=== PATIENT | female | born 2005 | race Caucasian/White ===

== ENCOUNTER 2025-04-11 07:58 | Inpatient (IN) | payer BC, MEDICAID ==
[2025-04-11] VITALS (7 sets, daily range): BP systolic 125; BP diastolic 76; PULSE 0–90; RESP 15–19; TEMP 98.5; O2SAT 95–98
[~2025-04-11] VITALS: Ht 160 cm; Wt 71.0 kg
--- NOTE | 2025-04-11 08:09 | ED.PDOC ---
General HPI Comments 20 y/o F, with PMHx of kidney stones presents to the ED for CC of flank pain. Patient states, she has been experiencing left-sided flank pain sudden onset, 0500 this morning (04/11/25). Patient reports, having been seen at Urgent Care yesterday (04/10/25) for SS and being prescribed Abx for a UTI. Patient further relays, to have associated symptoms of nausea; denies vomiting at this time. Patient denies fever, chills, frequency, or hematuria. No other symptoms or modifying factors are present at this time. Chief Complaint: Flank Pain Time Seen by MD: 08:30 Primary Care Provider: STAN Swann notes: Nurses Notes, Medications, Allergies Allergies: Coded Allergies: Penicillins (Verified Allergy, Unknown, 04/11/25) Information Source: Patient Mode of Arrival: Wheelchair Severity: Moderate Timing: Hours Duration: Since onset Prehospital treatment: None Onset: Spontaneous Symptoms: Dysuria History of: None Location: (L)Flank Modifying factors: None associated signs and symptoms: Nausea, Flank Pain, Dysuria Past Medical History PAST MEDICAL HISTORY: Anxiety, Depression Surgical History: Denies all surgeries [employer]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 Family History Family History: Reviewed,noncontributory to illness, Family hx of Cancer Family History (Other): Ovarian cysts, posterior orthostatic tachycardia syndrome Social History Smoker: Non-Smoker Alcohol: Denies ETOH Use Drugs: Denies Drug Use Lives In: Home Constitutional: denies: chills, diaphoresis, fatigue, fever, malaise, sweats, w eakness, others EENTM: denies: blurred vision, double vision, ear bleeding, ear discharge, ear drainage, ear pain, ear ringing, eye pain, eye redness, hearing loss, mouth pain, mouth swelling, nasal discharge, nose bleeding, nose congestion, nose pain, photophobia, tearing, throat pain, throat swelling, voice changes, others Respiratory: denies: cough, hemoptysis, orthopnea, SOB at rest, shortness of breath, SOB with excertion, stridor, wheezing, others Cardiovascular: denies: chest pain, dizzy spells, diaphoresis, Dyspnea on exertion, edema, irregular heart beat, left arm pain, lightheadedness, palpitations, PND, syncope, others Gastrointestinal: denies: abdomen distended, abdominal pain, blood streaked bowels, constipated, diarrhea, dysphagia, difficulty swallowing, hematemesis, melena, nausea, poor appetite, poor fluid intake, rectal bleeding, rectal pain, vomiting, others Genitourinary: reports: flank pain; denies: abnormal vagina bleeding, burning, dyspareunia, dysuria, frequency, hematuria, incontinence, pain, , vagina discharge, urgency, others Neurological: denies: dizziness, fainting, headache, left sided numbness, left sided weakness, numbness, paresthesia, pre-existing deficit, right sided numbness, right sided weakness, seizure, speech problems, tingling, tremors, weakness, others Musculoskeletal: denies: back pain, gout, joint pain, joint swelling, muscle pain, muscle stiffness, neck pain, others Integumetry: denies: bruises, change in color, change in hair/nails, dryness, laceration, lesions, lumps, rash, wounds, others Allergic/Immunocompromised: denies: Difficulty Healing, Frequent Infections, Hives, Itching, others Hematologic/Lymphatic: denies: anemia, blood clots, easy bleeding, easy bruising, swollen glands, others Endocrine: denies: excessive hunger, excessive sweating, excessive thirst, excessive urination, flushing, intolerance to cold, intolerance to heat, unexplained weight gain, unexplained weight loss, others Psychiatric: denies: anxiety, bipolar disorder, depression, hopeless, panic disorder, schizophrenia, sleepless, suicidal, others All Other Systems: Reviewed and Negative Physical Exam General Appearance: Moderate Distress HEENT: Normal ENT Inspection, Pharynx Normal, TMs Normal Neck: Full Range of Motion, Non-Tender, Normal, Normal Inspection Respiratory: Chest Non-Tender, Lungs Clear, No Accessory Muscle Use, No Respiratory Distress, Normal Breath Sounds Cardiovascular: No Edema, No JVD, No Murmur, No Gallop, Normal Peripheral Pul ses, Regular Rate/Rhythm Breast Exam: Deferred Gastrointestinal: Diffuse Genitalia: Deferred Pelvic: Deferred Rectal: Deferred Extremities: No calf tenderness, Normal capillary refill, Normal inspection, Normal range of motion, Non-tender, No pedal edema Musculoskeletal : Apperance: Normal Neurologic: Alert, mind reader II-XII nml as Tested, No Motor Deficits, Normal Affect, Normal Mood, No Sensory Deficits Cerebellar Function: NOT DONE Reflexes: NOT DONE Skin: Dry, Normal Color, Warm Peripheral Pulses: 3+ Radial (R), 3+ Radial (L) Lymphatic: No Adenopathy Was a procedure done? Was a procedure done?: No Differential Diagnosis Kidney stone (Female): Pyelonephritis, Urinary obstruction, Urolithiasis Kidney stone (Male): N/A Penile/Scrotal: N/A Urinary Problem (Male): N/A Urinary Problem (Female): UTI, Vaginitis X-Ray, Labs, Meds, VS Vital Signs Date Time Temp Pulse Resp B/P (MAP) Pulse Ox O2 Delivery O2 Flow Rate FiO2 04/11/25 08:00 99.1 96 18 124/82 97 99.1 Lab Test 04/11/25 08:22 Range/Units White Blood Count 9.0 4.4-10.8 10^3/uL Red Blood Count 4.97 4.0-5.20 10^6/uL Hemoglobin 14.3 12.2-16.2 g/dL Hematocrit 42.3 36.0-46.0 % Mean Corpuscular Volume 85.1 80.0-100.0 fL Mean Corpuscular Hemoglobin 28.8 28.0-32.0 pg Mean Corpuscular Hemoglobin Concent 33.8 32.0-36.0 g/dL Red Cell Distribution Width 13.2 11.8-14.3 % Platelet Count 314 140-450 10^3/uL Mean Platelet Volume 8.8 6.9-10.8 fL Neutrophils (%) (Auto) 83.7 H 37.0-80.0 % Lymphocytes (%) (Auto) 9.0 L 10.0-50.0 % Monocytes (%) (Auto) 6.1 0.0-12.0 % Eosinophils (%) (Auto) 1.0 0.0-7.0 % Basophils (%) (Auto) 0.2 0.0-2.0 % Neutrophils # (Auto) 7.5 1.6-8.6 10 ^3/uL Lymphocytes # (Auto) 0.8 0.4-5.4 10 ^3/uL Monocytes # (Auto) 0.5 0-1.3 10 ^3/uL Eosinophils # (Auto) 0.1 0-0.8 10 ^3/uL Basophils # (Auto) 0 0-0.2 10 ^3/uL Nucleated Red Blood Cells 0.0 % Sodium Level 142 136-145 mmol/L Potassium Level 4.1 3.5-5.1 mmol/L Chloride Level 109 H 98-107 mmol/L Carbon Dioxide Level 22 20-31 mmol/L Anion Gap 11 5-15 Blood Urea Nitrogen 9 9-23 mg/dL Creatinine 0.77 0.550-1.02 mg/dL Glomerular Filtration Rate Calc 113 >90 mL/min BUN/Creatinine Ratio 11.7 10.0-20.0 Serum Glucose 85 74-106 mg/dL Calcium Level 9.4 8.7-10.4 mg/dL Current Medications Medications (Trade) Dose Ordered Sig/Kristine Route Start Time Stop Time Status Last Admin Ondansetron HCl (Zofran) 4 mg ONCE ONCE IV 04/11/25 08:15 04/11/25 08:16 DC 04/11/25 08:54 Sodium Chloride 1,000 ml @ 1,000 mls/hr Q1H ONCE IVB 04/11/25 08:15 04/11/25 09:14 04/11/25 08:54 Ketorolac Tromethamine (Toradol Injection) 30 mg ONCE ONCE IV 04/11/25 08:15 04/11/25 08:16 DC 04/11/25 08:54 Patient alert. Complaining of flank pain. Vitals stable. Answering questions. Establish intravenous access. Was given fluids. Was given Toradol. Was given Zofran. CT scan of the abdomen reviewed shows appendicitis. Was given Levaquin. Was given Flagyl. Explained to the patient. Continue monitoring. [place] [id number] Ph: [phone] DIAGNOSTIC IMAGING Diagnostic Imaging Report : [id number] Signed PATIENT: NERIS LOUIS MACCT: [id number] UNIT: [id number] : 2005 LOC: ER ROOM / BED: / AGE / SEX: 20 / F ADM STATUS: REG ER SERVICE 4 ORDERING PHYSICIAN: JEREMIAS PINEDA MD PROCEDURE(s): ABPL - CT AB PEL WO CON-NO ORAL OR IV REASON: stone ORDER NUMBER(s): [id number], ACCESSION NUMBER(s): [id number] CLINICAL INFORMATION: Renal stone. TECHNIQUE: Axial CT images of the abdomen and pelvis were obtained without IV contrast. Coronal and sagittal reformatted images were obtained, reviewed, and stored. Evaluation of the parenchymal organs is limited without IV contrast. Evaluation of the bowel and mesentery is limited without oral contrast. All CT scans at this medical facility are performed using dose modulation techniques as appropriate to a performed exam including the following: Automated exposure control was utilized; adjustment of the MA and/or KV according to patient size; and use of iterative reconstruction technique. CTDIvol = 6.74 mGy DLP = 345.94 mGy-cm COMPARISON: CT CT AB PEL WO CON-NO ORAL OR IV on DOS: 11/11/24, CT CT AB PEL WO CON-NO ORAL OR IV on DOS: 08/18/23, US PELVIC on DOS: 08/18/23 FINDINGS: Lung bases: Lung bases are clear. Liver: Grossly unremarkable in its noncontrast enhanced appearance. No abnormal density or focal lesion identified. Biliary: No calcified gallstones or biliary ductal dilatation. Spleen: Unremarkable. Pancreas: Grossly unremarkable in its noncontrast enhanced appearance. Adrenal glands: Unremarkable. No mass. Kidneys: No hydronephrosis. No renal or ureteral calculi. Aorta/Vascular: No aneurysm or significant calcification. Lymph nodes: No mass or lymphadenopathy. Bowel/mesentery: No small bowel obstruction. No free air or free fluid. Appendix is is mildly thickened, measuring up to 8 mm in thickness. Subtle mild inflammatory stranding adjacent to the appendix, suspicious for acute appendicitis. There is a 2 mm appendicolith within the lumen of the appendix. No evidence of perforation or abscess. Pelvic organs: Grossly unremarkable. Bladder: Unremarkable. No mass. Abdominal wall: No mass or hernia. Bones: No acute fracture or suspicious intraosseous lesion. IMPRESSION: 1. Thickened appendix with mild adjacent stranding, suspected acute appendicitis in the appropriate clinical setting. 2. No renal or ureteral calculi. Critical findings Critical Result: Findings consistent with acute appendicitis in the appropriate clinical setting. Findings discussed with Dr. Pineda, at 04/11/2025 11:01 AM CDT, and acknowledged receipt and understanding of the findings. .. ATED BY: DALE SOLANO DO DICTATED DATE/TIME: 04/11/25902 SIGNED BY: DALE SOLANO DO SIGNED DATE/TIME: 04/11/25902 CC: Time of 1ST Reevaluation: 09:00 Reevaluation 1ST: Unchanged Patient Education/Counseling: Diagnosis, Treatment Family Education/Counseling: No Family Present SEPSIS Sepsis Screen Date sepsis recognized/suspect: Apr 11, 2025 Time Sepsis recognized/suspect: 08 Recent Procedure: No On Antibiotic Therapy: Yes Respiratory Rate >20: No Heart Rate >90: Yes Temp<36 C (96.8 F) or >38.3 C: No SBP <90 or MAP <65 mmHG: No New Acute Mental Status Change: No Is the patient on CPAP, BIPAP,: No Physician Orders Urinalysis (04/11/25 08:15) Sodium Chloride 0.9% (04/11/25 08:15) Ct Ab Pel Wo Con-No Oral Or Iv (04/11/25 08:15) Levofloxacin 500mg (Levaquin 500mg/ 100m (04/11/25 09:15) Metronidazole 500mg/100ml (Flagyl 500mg/ (04/11/25 09:15) PTPTT (04/11/25 09:05) Sodium Chloride 0.9% (04/11/25 09:15) Vital Signs Date Time Temp Pulse Resp B/P (MAP) Pulse Ox O2 Delivery O2 Flow Rate FiO2 04/11/25 08:00 99.1 96 18 124/82 97 99.1 Laboratory Tests Test 04/11/25 08:22 White Blood Count 9.0 10^3/uL (4.4-10.8) Medications Medications Dose Ordered Sig/Kristine Route Start Time Stop Time Status Last Admin Dose Admin Ketorolac Tromethamine 30 mg ONCE ONCE IV 04/11/25 08:15 04/11/25 08:16 DC 04/11/25 08:54 Ondansetron HCl 4 mg ONCE ONCE IV 04/11/25 08:15 04/11/25 08:16 DC 04/11/25 08:54 Sodium Chloride 1,000 ml @ 1,000 mls/hr Q1H ONCE IVB 04/11/25 08:15 04/11/25 09:14 04/11/25 08:54 Departure 1 Departure Time of Disposition: 08:44 Impression: Primary Impression: Acute appendicitis Qualified Codes: K35.80 - Unspecified acute appendicitis Disposition: ADMITTED INPATIENT Admit to: Med Surg Condition: Guarded Critical Care Note Critical Care Time?: Yes (90 min-critical care time only) Stability Stability form required: No Heart Score Heart Score: Heart Score Response (Comments) Value History N/A 0 EKG N/A 0 Age N/A 0 Risk Factors N/A 0 Troponin N/A 0 Total 0 I personally scribed for JEREMIAS PINEDA MD ([email or web address]) on 04/11/25 at 08:09. Electronically submitted by eR Howell ([email or web address]). I personally scribed for JEREMIAS PINEDA MD ([email or web address]) on 04/11/25 at 08:19. Electronically submitted by Re Howell ([email or web address]). I personally scribed for JEREMIAS PINEDA MD ([email or web address]) on 04/11/25 at 09:12. Electronically submitted by Re Howell ([email or web address]). JEREMIAS PINEDA MD Apr 11, 2025 08:09
[2025-04-11 08:50] LABS: Hematocrit 42.3 % (36.0-46.0); Hemoglobin 14.3 g/dL (12.2-16.2); Mean Corpuscular Hemoglobin 28.8 pg (28.0-32.0); Mean Corpuscular Volume 85.1 fL (80.0-100.0); Nucleated Red Blood Cells % 0.0 %
[2025-04-11] MEDS: KETOROLAC TROMETH 30 MG/ML 1ML VIAL IV ONE (08:54)
[2025-04-11] MEDS: SODIUM CHLORIDE 0.9% 1,000 ML IVB ONE (08:54)
[2025-04-11] MEDS: ONDANSETRON HCL 4 MG/2 ML VIAL IV ONE (08:54)
[2025-04-11 08:59] LABS: Anion Gap 11 (5-15); Carbon Dioxide 22 mmol/L (20-31); Potassium 4.1 mmol/L (3.5-5.1); Sodium 142 mmol/L (136-145)
[2025-04-11 09:00] LABS: Calcium 9.4 mg/dL (8.7-10.4); Chloride 109 mmol/L (98-107)
[2025-04-11 09:05] LABS: BUN/Creatinine Ratio 11.7 (10.0-20.0); Glucose 85 mg/dL (74-106)
[2025-04-11 09:06] LABS: Blood Urea Nitrogen 9 mg/dL (9-23)
--- NOTE | 2025-04-11 09:06 | DVH ---
CLINICAL INFORMATION: Renal stone. TECHNIQUE: Axial CT images of the abdomen and pelvis were obtained without IV contrast. Coronal and s agittal reformatted images were obtained, reviewed, and stored. Evaluation of the parenchymal organs is limited without IV contrast. Evaluation of the bowel and mesentery is limited without oral contras t. All CT scans at this medical facility are performed using dose modulation techniques as appropriat e to a performed exam including the following: Automated exposure control was utilized; adjustment of the MA and/or KV according to patient size; and use of iterative reconstruction technique. CTDIvol = 6.74 mGy DLP = 345.94 mGy-cm COMPARISON: CT CT AB PEL WO CON-NO ORAL OR IV on DOS: 11/11/24, CT CT AB PEL WO CON-NO ORAL OR IV on D OS: 08/18/23, US PELVIC on DOS: 08/18/23 FINDINGS: Lung bases: Lung bases are clear. Liver: Grossly unremarkable in its noncontrast enhanced appearance. No abnormal density or focal lesi on identified. Biliary: No calcified gallstones or biliary ductal dilatation. Spleen: Unremarkable. Pancreas: Grossly unremarkable in its noncontrast enhanced appearance. Adrenal glands: Unremarkable. No mass. Kidneys: No hydronephrosis. No renal or ureteral calculi. Aorta/Vascular: No aneurysm or significant calcification. Lymph nodes: No mass or lymphadenopathy. Bowel/mesentery: No small bowel obstruction. No free air or free fluid. Appendix is is mildly thicken ed, measuring up to 8 mm in thickness. Subtle mild inflammatory stranding adjacent to the appendix, s uspicious for acute appendicitis. There is a 2 mm appendicolith within the lumen of the appendix. No evidence of perforation or abscess. Pelvic organs: Grossly unremarkable. Bladder: Unremarkable. No mass. Abdominal wall: No mass or hernia. Bones: No acute fracture or suspicious intraosseous lesion. IMPRESSION: 1. Thickened appendix with mild adjacent stranding, suspected acute appendicitis in the appropriate c linical setting. 2. No renal or ureteral calculi. Critical findings Critical Result: Findings consistent with acute appendicitis in the appropriate clinical setting. Findings discussed with Dr. Hammond, at 04/11/2025 11:01 AM CDT, and acknowledged receipt and underst anding of the findings. ..
[2025-04-11 09:40] LABS: INR 1.02 (0.9-1.15); Partial Thromboplastin Time 30.2 SEC (24.5-34.5); Prothrombin Time 10.8 sec (9.3-11.8)
[2025-04-11 12:40] LABS: Urine Protein, UAD TRACE (Negative)
[2025-04-11] MEDS ORDERED: HYDROmorphone HCL 2 MG/ML VL/or syr IV PRN ×2 (13:15→19:30)
--- NOTE | 2025-04-11 14:02 | DVH ---
CHEST RADIOGRAPH Indication: preop Technique: XY CHEST XRAY 1 VIEW Comparison: None FINDINGS: The cardiac silhouette is unremarkable. The lungs demonstrate no pulmonary airspace consolidation. Th e pulmonary vasculature is unremarkable. There is no pleural effusion. There is no pneumothorax. IMPRESSION: No pulmonary airspace consolidation.
[2025-04-11] MEDS: SODIUM CHLORIDE 0.9% 1,000 ML IV ONE (15:26)
[2025-04-11] MEDS: PANTOPRAZOLE 40 MG/10 ML VIAL INJ IV ONE (15:27)
--- NOTE | 2025-04-11 15:42 | DVHHP2 ---
History of Present Illness Reason for Visit: Abdominal pain History of Present Illness 20-year-old female presents for evaluation of abdominal pain. Patient reports a one day history of left-sided flank pain that radiates to her left lower quadrant and right lower quadrant. She reports feeling of pressure to her right lower quadrant. She associates having nausea without emesis. No fever or chills. No other acute complaints. Past Medical History Denies Past Surgical History Denies Family History Noncontributory Smoke: No ALCOHOL: none Drugs: None Lives: with Family Review of Systems Review of Systems Review of systems are currently negative otherwise addressed in HPI. Allergies: Coded Allergies: Penicillins (Verified Allergy, Unknown, 04/11/25) Medications Current Medications Medications Dose Ordered Sig/Kristine Route Start Time Stop Time Status Last Admin Dose Admin Levofloxacin/ Dextrose 100 ml @ 100 mls/hr DAILY IV 04/12/25 10:00 Metronidazole 100 ml @ 100 mls/hr Q8HR IV 04/11/25 14:00 04/11/25 15:28 100 MLS/HR Pantoprazole Sodium 40 mg DAILY IV 04/12/25 10:00 Ondansetron HCl 4 mg Q4HP PRN IV 04/11/25 13:15 Hydromorphone HCl 0.5 mg Q4HPRN PRN IV 04/11/25 13:15 Exam Vital Signs Vital Signs Date Time Temp Pulse Resp B/P (MAP) Pulse Ox O2 Delivery O2 Flow Rate FiO2 04/11/25 12:00 98.6 74 18 107/63 (78) 99 98.6 04/11/25 09:40 Room Air* 0 21 Exam Gen: 20-year-old female in mild distress. Skin: Warm, dry, normal color and texture, no rash. HEENT: Normocephalic atraumatic, mucous membranes moist and pink. Neck: Cervical and supraclavicular nodes normal without enlargement, trachea is midline, thyroid gland is normal without masses. Pulmonary: Clear to auscultation and percussion bilaterally. Cardiac: Regular rate and rhythm. No murmur Abdomen: Soft, left lower quadrant tenderness, nondistended, bowel sounds present all 4 quadrants, no guarding, no rigidity, no organomegaly. Extremities: No cyanosis, clubbing, no edema Neuro: Cranial nerves II through XII grossly intact, normal affect and speech, no focal motor deficits. Labs/Xrays ORDERING PHYSICIAN: QUINTIN DONALDSONCNLc PROCEDURE(s): CXR1 - CHEST XRAY 1 VIEW REASON: preop ORDER NUMBER(s): [id number], ACCESSION NUMBER(s): [id number] CHEST RADIOGRAPH Indication: preop Technique: XY CHEST XRAY 1 VIEW Comparison: None FINDINGS: The cardiac silhouette is unremarkable. The lungs demonstrate no pulmonary airspace consolidation. The pulmonary vasculature is unremarkable. There is no pleural effusion. There is no pneumothorax. IMPRESSION: No pulmonary airspace consolidation. RING PHYSICIAN: JEREMIAS PINEDA MD PROCEDURE(s): ABPL - CT AB PEL WO CON-NO ORAL OR IV REASON: stone ORDER NUMBER(s): [id number], ACCESSION NUMBER(s): [id number] CLINICAL INFORMATION: Renal stone. TECHNIQUE: Axial CT images of the abdomen and pelvis were obtained without IV contrast. Coronal and sagittal reformatted images were obtained, reviewed, and stored. Evaluation of the parenchymal organs is limited without IV contrast. Evaluation of the bowel and mesentery is limited without oral contrast. All CT scans at this medical facility are performed using dose modulation techniques as appropriate to a performed exam including the following: Automated exposure control was utilized; adjustment of the MA and/or KV according to patient size; and use of iterative reconstruction technique. CTDIvol = 6.74 mGy DLP = 345.94 mGy-cm COMPARISON: CT CT AB PEL WO CON-NO ORAL OR IV on DOS: 11/11/24, CT CT AB PEL WO CON-NO ORAL OR IV on DOS: 08/18/23, US PELVIC on DOS: 08/18/23 FINDINGS: Lung bases: Lung bases are clear. Liver: Grossly unremarkable in its noncontrast enhanced appearance. No abnormal density or focal lesion identified. Biliary: No calcified gallstones or biliary ductal dilatation. Spleen: Unremarkable. Pancreas: Grossly unremarkable in its noncontrast enhanced appearance. Adrenal glands: Unremarkable. No mass. Kidneys: No hydronephrosis. No renal or ureteral calculi. Aorta/Vascular: No aneurysm or significant calcification. Lymph nodes: No mass or lymphadenopathy. Bowel/mesentery: No small bowel obstruction. No free air or free fluid. Appendix is is mildly thickened, measuring up to 8 mm in thickness. Subtle mild inflammatory stranding adjacent to the appendix, suspicious for acute appendicitis. There is a 2 mm appendicolith within the lumen of the appendix. No evidence of perforation or abscess. Pelvic organs: Grossly unremarkable. Bladder: Unremarkable. No mass. Abdominal wall: No mass or hernia. Bones: No acute fracture or suspicious intraosseous lesion. IMPRESSION: 1. Thickened appendix with mild adjacent stranding, suspected acute appendicitis in the appropriate clinical setting. 2. No renal or ureteral calculi. Critical findings Critical Result: Findings consistent with acute appendicitis in the appropriate clinical setting. Findings discussed with Dr. Pineda, at 04/11/2025 11:01 AM CDT, and acknowledged receipt and understanding of the findings. .. Labs Test 04/11/25 08:40 04/11/25 08:22 Range/Units Urine Color Colorless Yellow Urine Clarity Turbid H Clear Urine pH 5.5 5.0-9.0 Urine Specific [place] 1.017 1.001-1.035 Urine Protein Trace H Negative Urine Ketones Negative Negative Urine Blood 1+ H Negative /uL Urine Nitrite 2+ H Negative Urine Bilirubin Negative Negative Urine Urobilinogen Normal Negative mg/dL Urine Leukocyte Esterase 1+ Negative /uL Urine RBC 9 0 - 4 /hpf Urine Microscopic WBC 53 H 0-5 /HPF Urine Squamous Epithelial Cells Few <5 /hpf Urine Bacteria None seen None Seen /hpf Urine Mucus Few None Seen Urine Glucose Normal Normal mg/dL White Blood Count 9.0 4.4-10.8 10^3/uL Red Blood Count 4.97 4.0-5.20 10^6/uL Hemoglobin 14.3 12.2-16.2 g/dL Hematocrit 42.3 36.0-46.0 % Mean Corpuscular Volume 85.1 80.0-100.0 fL Mean Corpuscular Hemoglobin 28.8 28.0-32.0 pg Mean Corpuscular Hemoglobin Concent 33.8 32.0-36.0 g/dL Red Cell Distribution Width 13.2 11.8-14.3 % Platelet Count 314 140-450 10^3/uL Mean Platelet Volume 8.8 6.9-10.8 fL Neutrophils (%) (Auto) 83.7 H 37.0-80.0 % Lymphocytes (%) (Auto) 9.0 L 10.0-50.0 % Monocytes (%) (Auto) 6.1 0.0-12.0 % Eosinophils (%) (Auto) 1.0 0.0-7.0 % Basophils (%) (Auto) 0.2 0.0-2.0 % Neutrophils # (Auto) 7.5 1.6-8.6 10 ^3/uL Lymphocytes # (Auto) 0.8 0.4-5.4 10 ^3/uL Monocytes # (Auto) 0.5 0-1.3 10 ^3/uL Eosinophils # (Auto) 0.1 0-0.8 10 ^3/uL Basophils # (Auto) 0 0-0.2 10 ^3/uL Nucleated Red Blood Cells 0.0 % Prothrombin Time 10.8 9.3-11.8 sec Prothrombin Time INR 1.02 0.9-1.15 Activated Partial Thromboplast Time 30.2 24.5-34.5 SEC Sodium Level 142 136-145 mmol/L Potassium Level 4.1 3.5-5.1 mmol/L Chloride Level 109 H 98-107 mmol/L Carbon Dioxide Level 22 20-31 mmol/L Anion Gap 11 5-15 Blood Urea Nitrogen 9 9-23 mg/dL Creatinine 0.77 0.550-1.02 mg/dL Glomerular Filtration Rate Calc 113 >90 mL/min BUN/Creatinine Ratio 11.7 10.0-20.0 Serum Glucose 85 74-106 mg/dL Calcium Level 9.4 8.7-10.4 mg/dL SEPSIS Sepsis Screen Date sepsis recognized/suspect: Apr 11, 2025 Time Sepsis recognized/suspect: 939 Recent Procedure: No On Antibiotic Therapy: No Respiratory Rate >20: No Heart Rate >90: No Temp<36 C (96.8 F) or >38.3 C: No SBP <90 or MAP <65 mmHG: No New Acute Mental Status Change: No Is the patient on CPAP, BIPAP,: No Physician Orders Ct Ab Pel Wo Con-No Oral Or Iv (04/11/25 08:15) * Surgical Consult (04/11/25 ) Levofloxacin 500mg (Levaquin 500mg/ 100m (04/12/25 10:00) Metronidazole 500mg/100ml (Flagyl 500mg/ (04/11/25 14:00) Sodium Chloride 0.9% (04/11/25 13:15) Pantoprazole (Protonix) (04/12/25 10:00) Chest Xray 1 View (04/11/25 13:10) Admit (04/11/25 13:10) Ondansetron Hcl (Zofran) (04/11/25 13:15) Complete Blood Count (04/12/25 04:00) Comprehensive Metabolic Panel (04/12/25 04:00) Npo (Nothing By Mouth) Diet (04/11/25 Lunch) Condition: Stable (04/11/25 13:10) Bedrest With Bathroom Privileg (04/11/25 13:10) Hydromorphone Injection (Dilaudid Inject (04/11/25 13:15) Vital Signs Date Time Temp Pulse Resp B/P (MAP) Pulse Ox O2 Delivery O2 Flow Rate FiO2 04/11/25 12:00 98.6 74 18 107/63 (78) 99 98.6 04/11/25 09:40 98.8 66 16 104/72 (83) 98 98.8 04/11/25 09:40 66 16 98 Room Air* 0 21 04/11/25 09:21 98.2 90 19 118/82 (94) 97 98.2 04/11/25 09:21 90 19 97 Room Air* 0 21 04/11/25 08:00 99.1 96 18 124/82 97 99.1 Laboratory Tests Test 04/11/25 08:22 White Blood Count 9.0 10^3/uL (4.4-10.8) Medications Medications Dose Ordered Sig/Kristine Route Start Time Stop Time Status Last Admin Dose Admin Ketorolac Tromethamine 30 mg ONCE ONCE IV 04/11/25 08:15 04/11/25 08:16 DC 04/11/25 08:54 30 MG Levofloxacin/ Dextrose 100 ml @ 100 mls/hr ONCE ONCE IV 04/11/25 09:15 04/11/25 10:14 DC 04/11/25 10:47 100 MLS/HR Metronidazole 100 ml @ 100 mls/hr ONCE ONCE IV 04/11/25 09:15 04/11/25 10:14 DC 04/11/25 12:17 100 MLS/HR Metronidazole 100 ml @ 100 mls/hr Q8HR IV 04/11/25 14:00 04/11/25 15:28 100 MLS/HR Ondansetron HCl 4 mg ONCE ONCE IV 04/11/25 08:15 04/11/25 08:16 DC 04/11/25 08:54 4 MG Pantoprazole Sodium 40 mg ONCE ONCE IV 04/11/25 13:15 04/11/25 14:16 DC 04/11/25 15:27 40 MG Sodium Chloride 1,000 ml @ 1,000 mls/hr Q1H ONCE IV 04/11/25 09:15 04/11/25 10:14 DC 04/11/25 15:26 1,000 MLS/HR Sodium Chloride 1,000 ml @ 1,000 mls/hr Q1H ONCE IVB 04/11/25 08:15 04/11/25 09:14 DC 04/11/25 08:54 1,000 MLS/HR Assessment/Plan Assessment/Plan Assessment Acute abdominal pain Acute appendicitis Urinary tract infection Plan Admit the patient to [facility] surge to the hospitalist Surgical consultation Levaquin/Flagyl Maintenance IV fluids NPO Pain management Continue treatment per orders. Plan discussed with: Patient My Orders Orders - QUINTIN DONALDSON Procedure Category Date Status Time * Surgical Consult CONS 04/11/25 Transmitted Levofloxacin 500mg PHA 04/12/25 In Process (Levaquin 500mg/ 100m 10:00 Metronidazole PHA 04/11/25 In Process 500mg/100ml (Flagyl 14:00 Sodium Chloride 0.9% PHA 04/11/25 In Process 13:15 Pantoprazole PHA 04/12/25 In Process (Protonix) 10:00 Chest Xray 1 View XY 04/11/25 Resulted 13:10 Admit ADMIT 04/11/25 Transmitted 13:10 Ondansetron Hcl PHA 04/11/25 In Process (Zofran) 13:15 Complete Blood Count LAB 04/12/25 Verified 04:00 Comprehensive LAB 04/12/25 Verified Metabolic Panel 04:00 Npo (Nothing By DIET 04/11/25 Transmitted Mouth) Diet Lunch Condition: Stable ADEN 04/11/25 In Process 13:10 Bedrest With Bathroom ADEN 04/11/25 In Process Privileg 13:10 Hydromorphone PHA 04/11/25 In Process Injection (Dilaudid 13:15 Date of Service: Apr 11, 2025 Billing Provider: QUINTIN DONALDSON Common Visit Codes: [id number] INP/OBS CARE (HIGH) QUINTIN DONALDSON Apr 11, 2025 15:42
--- NOTE | 2025-04-11 17:23 | DVHINCON2 ---
Consultation - Surgical Date Seen: Apr 11, 2025 Referring Physician Reason for Consultation Acute appendicitis History of Present Illness History of Present Illness Ms. West is a 20-year-old female who presented to the hospital due to having left-sided lower abdominal pain and some right-sided lower abdominal pressure. Pain started today around 5:00 a.m. kept progressing until she had to go to the emergency room. Denies fevers, chills, nausea, vomiting, changes in urinary or stooling habits. I was called for the possibility of appendicitis. Past Medical/Surgical History Past Medical/Surgical History Past medical history/past surgical history denies Family and Social History Family and Social History Family history noncontributory Allergies and medications Allergies: Coded Allergies: Penicillins (Verified Allergy, Unknown, 04/11/25) Review of systems Review of Systems: Deferred Examination Vital signs Vital Signs Date Time Temp Pulse Resp B/P (MAP) Pulse Ox O2 Delivery O2 Flow Rate FiO2 04/11/25 16:25 76 20 114/63 (80) 98 04/11/25 14:00 98.0 98.0 04/11/25 13:09 Room Air* 0 21 Medications Current Medications Medications (Trade) Dose Ordered Sig/Kristine Route PRN Reason Start Time Stop Time Status Last Admin Levofloxacin/ Dextrose 100 ml @ 100 mls/hr DAILY IV 04/12/25 10:00 Metronidazole 100 ml @ 100 mls/hr Q8HR IV 04/11/25 14:00 04/11/25 15:28 Pantoprazole Sodium (Protonix) 40 mg DAILY IV 04/12/25 10:00 Ondansetron HCl (Zofran) 4 mg Q4HP PRN IV NAUSEA / VOMITING 04/11/25 13:15 Hydromorphone HCl (Dilaudid Injection) 0.5 mg Q4HPRN PRN IV SEVERE PAIN (7-10 PAIN SCALE) 04/11/25 13:15 Laboratory Labs Test 04/11/25 08:40 04/11/25 08:22 Range/Units Urine Color Colorless Yellow Urine Clarity Turbid H Clear Urine pH 5.5 5.0-9.0 Urine Specific [place] 1.017 1.001-1.035 Urine Protein Trace H Negative Urine Ketones Negative Negative Urine Blood 1+ H Negative /uL Urine Nitrite 2+ H Negative Urine Bilirubin Negative Negative Urine Urobilinogen Normal Negative mg/dL Urine Leukocyte Esterase 1+ Negative /uL Urine RBC 9 0 - 4 /hpf Urine Microscopic WBC 53 H 0-5 /HPF Urine Squamous Epithelial Cells Few <5 /hpf Urine Bacteria None seen None Seen /hpf Urine Mucus Few None Seen Urine Glucose Normal Normal mg/dL White Blood Count 9.0 4.4-10.8 10^3/uL Red Blood Count 4.97 4.0-5.20 10^6/uL Hemoglobin 14.3 12.2-16.2 g/dL Hematocrit 42.3 36.0-46.0 % Mean Corpuscular Volume 85.1 80.0-100.0 fL Mean Corpuscular Hemoglobin 28.8 28.0-32.0 pg Mean Corpuscular Hemoglobin Concent 33.8 32.0-36.0 g/dL Red Cell Distribution Width 13.2 11.8-14.3 % Platelet Count 314 140-450 10^3/uL Mean Platelet Volume 8.8 6.9-10.8 fL Neutrophils (%) (Auto) 83.7 H 37.0-80.0 % Lymphocytes (%) (Auto) 9.0 L 10.0-50.0 % Monocytes (%) (Auto) 6.1 0.0-12.0 % Eosinophils (%) (Auto) 1.0 0.0-7.0 % Basophils (%) (Auto) 0.2 0.0-2.0 % Neutrophils # (Auto) 7.5 1.6-8.6 10 ^3/uL Lymphocytes # (Auto) 0.8 0.4-5.4 10 ^3/uL Monocytes # (Auto) 0.5 0-1.3 10 ^3/uL Eosinophils # (Auto) 0.1 0-0.8 10 ^3/uL Basophils # (Auto) 0 0-0.2 10 ^3/uL Nucleated Red Blood Cells 0.0 % Prothrombin Time 10.8 9.3-11.8 sec Prothrombin Time INR 1.02 0.9-1.15 Activated Partial Thromboplast Time 30.2 24.5-34.5 SEC Sodium Level 142 136-145 mmol/L Potassium Level 4.1 3.5-5.1 mmol/L Chloride Level 109 H 98-107 mmol/L Carbon Dioxide Level 22 20-31 mmol/L Anion Gap 11 5-15 Blood Urea Nitrogen 9 9-23 mg/dL Creatinine 0.77 0.550-1.02 mg/dL Glomerular Filtration Rate Calc 113 >90 mL/min BUN/Creatinine Ratio 11.7 10.0-20.0 Serum Glucose 85 74-106 mg/dL Calcium Level 9.4 8.7-10.4 mg/dL Examination: GENERAL:Normal, ABDOMEN:Abnormal (Nondistended, soft, depressible, left lower quadrant tenderness, right lower quadrant/flank tenderness, no rebound, no guarding) Problem List/Assessment/Plan Problems: (1) Acute appendicitis Assessment and Plan Ms. West is a 20-year-old female who presented with acute appendicitis. CT shows dilated appendix with minimal surrounding stranding bottom physical exam she is very tender along were the appendix lays. Patient will benefit from laparoscopic appendectomy. Procedure, risks, benefits, complications, and alternatives were discussed with the patient. She agrees with surgical plan. 1. On-call to OR for laparoscopic appendectomy, possible open 2. NPO Plan discussed with Plan discussed with: Patient Visit Coding Surgery Date of Service if different f: Apr 11, 2025 Billing Provider: RYLAND MUNOZ MD Surgery Visit Codes: [id number] - INP CONSULT <110 MIN RYLAND MUNOZ MD Apr 11, 2025 17:23
[2025-04-11] MEDS: SUCCINYLCHOLINE CHLORIDE 20 MG/ML 10ML VIAL IV ONE (17:42)
[2025-04-11] MEDS ORDERED: fentaNYL CITRATE 100 MCG/2 ML VL ONE (17:43)
[2025-04-11] MEDS ORDERED: HYDROmorphone HCL 2 MG/ML VL/or syr ONE (17:43)
[2025-04-11] MEDS ORDERED: PROPOFOL 10 MG/ML 20 ML IV ONE (17:44)
[2025-04-11] MEDS: BUPIVACAINE 0.5% P/F INJ 10 ML VIAL ONE (18:43)
[2025-04-11] MEDS: ROPIVACAINE 0.5% (5MG/ML) 20ML AMPULE IJ ONE (18:53)
[2025-04-11] MEDS ORDERED: SUGAMMADEX 200mg/2ml Vial (100MG/ML) IV ONE (18:56)
--- NOTE | 2025-04-11 18:59 | DVHOP2 ---
Operative Report - 2 Report Details Date: 04/11/25 Preop Diagnosis: Acute appendicitis Postop Diagnosis: Same Surgeon: Jorge Mcgraw MD Cartridge Assembling Machine Adjuster: Yonas Rodriguez NP Anesthesiologist: Dr. Riojas Anesthesia: General Consent: The patient was informed of the risks and benefits of the procedure. These include but are not limited to complications of anesthesia, postoperative infection, incomplete relief of symptoms, recurrence of symptoms, damage to blood vessels, nerves and tendons, deep venous thrombosis, pulmonary embolism and possible need for repeat surgery in the future. Complications: None Estimated Blood Loss: 5 mL Findings: Acute inflammation of mid to distal appendix, not gangrenous, not perforated Indications for Surgery: Acute appendicitis Name of Procedure Performed Laparoscopic appendectomy Procedure Details Procedure Details: Upon arrival to the operating room the patient was transferred to the operating table and placed in the supine position with arms extended. General endotracheal anesthesia was induced. Time-out was observed. Patient was prepped and draped in the standard sterile surgical fashion with chlorhexidine. After induction a Aguilera was placed. I then proceeded to make a infraumbilical curvilinear incision and carried the dissection down to fascia. Once at the fascia I grasped the umbilical stalk with Dejah clamp. I then walked the Dejah clamp all the way to the umbilical stalk base and once at the base I gained entry into the peritoneal cavity utilizing Connor technique. I then placed a fascial retention stitch in [id number] fashion of 0 Vicryl. I then introduced the Jaquez cannula and insufflated the peritoneal cavity to 15 mmHg with toleration. I then inserted a 30 degree 10 mm scope and surveyed the entry site, no injuries noted. I then placed 2 additional 5 mm working ports at the left lower quadrant and suprapubic area under direct vision. Patient was then placed in the Trendelenburg position right side up. I then identified the cecum and immediately noted the appendix adjacent to the lateral wall. I grasped adjacent to the base of the appendix. I noted that the appendix was inflamed and dilated from mid to distal appendix. I then made a mesenteric rent at the base of the appendix. I then stapled the appendix with a 60 mm Endo-ELVIA white load. I then utilized a 2nd Endo-ELVIA 60 mm white load to transect the mesoappendix. Appendix was then placed in the Endo-Catch bag and taken out of the peritoneal cavity through the umbilical site. I then proceeded to inspect the staple lines, and there was a tiny area of ooze from the corner of the meso appendix staple line, I placed a single 5 mm clip on it and hemostasis was achieved. I then surveyed the cecum staple line was intact. I then proceeded to inspect the pelvis, there was some minimal inflammatory fluid which was suctioned. Right ovary appeared normal left ovary appeared normal but with some adhesions to the lateral pelvic wall. This concluded the intraperitoneal portion of the surgery. The 5 mm trocars were removed under direct vision, no bleeding from abdominal wall. All counts complete and correct. The peritoneal cavity was allowed to fully desufflate. Previous fascial retention suture was closed. All skin sites were closed with a 4-0 Monocryl and Dermabond. 0.25% Ma rcaine was used as local anesthetic. Patient tolerated the procedure well and was transferred to PACU in stable condition. Condition Stable Disposition Still a Patient JORGE MUNOZ MD Apr 11, 2025 18:59
[2025-04-11] MEDS ORDERED: ONDANSETRON HCL 4 MG/2 ML VIAL IV PRN (19:30)
[2025-04-11] MEDS: ACETAMINOPHEN IV 1000 MG/100ML (10MG/ML) IV PRN (19:30)
[2025-04-11] MEDS ORDERED: fentaNYL CITRATE 100 MCG/2 ML VL IV PRN (19:30)
[2025-04-11] MEDS: ACETAMINOPHEN IV 100 ML IV ONE (19:43)
[2025-04-11] MEDS: ONDANSETRON HCL 4 MG/2 ML VIAL IV PRN (20:13)
[2025-04-11] MEDS: KETOROLAC TROMETH 30 MG/ML 1ML VIAL IV SCH (21:50)
[2025-04-12] VITALS (8 sets, daily range): BP systolic 105–129; BP diastolic 56–80; PULSE 78–109; RESP 16–20; TEMP 97.6–99; O2SAT 96–98
[2025-04-12] MEDS: ACETAMINOPHEN 325 MG TAB PO SCH (00:49)
[2025-04-12] MEDS: HYDROcodone-ACET 5/325MG TAB PO PRN (01:56)
[2025-04-12 06:51] LABS: Hematocrit 38.4 % (36.0-46.0); Hemoglobin 13.1 g/dL (12.2-16.2); Mean Corpuscular Hemoglobin 28.7 pg (28.0-32.0); Mean Corpuscular Volume 84.5 fL (80.0-100.0); Nucleated Red Blood Cells % 0.0 %
[2025-04-12 07:12] LABS: Alanine Aminotransferase 14 U/L (7-40); Albumin 4.6 g/dL (3.2-4.8); Alkaline Phosphatase 53 U/L (46-116); Anion Gap 13 (5-15); BUN/Creatinine Ratio 10.3 (10.0-20.0); Calcium 9.5 mg/dL (8.7-10.4); Carbon Dioxide 20 mmol/L (20-31); Glucose 99 mg/dL (74-106); Potassium 4.2 mmol/L (3.5-5.1); Sodium 140 mmol/L (136-145); Total Protein 7.3 g/dL (5.7-8.2)
[2025-04-12 07:13] LABS: Bilirubin, Total 0.5 mg/dL (0.2-1.0)
[2025-04-12 07:21] LABS: Blood Urea Nitrogen 7 mg/dL (9-23); Chloride 107 mmol/L (98-107)
[2025-04-12] MEDS: SODIUM CHLORIDE 0.9% 1,000 ML IV ONE (07:36)
[2025-04-12] MEDS: PANTOPRAZOLE 40 MG/10 ML VIAL INJ IV SCH (10:20)
--- NOTE | 2025-04-12 12:10 | DVHPN2 ---
Progress Note - Surgical Date Seen: Apr 12, 2025 Post op day Post op day: 1 Subjective Patient reports: Feels better (Patient feeling better, some tolerable postop pain, no nausea no vomiting) Review of Systems: Deferred Objective Vital signs Vital Sign Date Time Temp Pulse Resp B/P (MAP) Pulse Ox O2 Delivery O2 Flow Rate FiO2 04/12/25 09:00 98.8 93 18 110/62 (78) 98 98.8 04/12/25 07:50 Room Air* 0 21 Total Intake and Output 04/11/25 04/11/25 04/12/25 15:00 23:00 07:00 Intake Total 100 ml 200 ml 150 ml Balance 100 ml 200 ml 150 ml Medications Current Medications Medications Dose Ordered Sig/Kristine Route Start Time Stop Time Status Last Admin Dose Admin Levofloxacin/ Dextrose 100 ml @ 100 mls/hr DAILY IV 04/12/25 10:00 04/12/25 10:20 100 MLS/HR Metronidazole 100 ml @ 100 mls/hr Q8HR IV 04/11/25 14:00 04/12/25 06:19 100 MLS/HR Pantoprazole Sodium 40 mg DAILY IV 04/12/25 10:00 04/12/25 10:20 40 MG Ondansetron HCl 4 mg Q4HP PRN IV 04/11/25 13:15 04/12/25 00:49 4 MG Hydromorphone HCl 0.5 mg Q4HPRN PRN IV 04/11/25 13:15 Hold Acetaminophen/ Hydrocodone Bitart 1 tab Q4HP PRN PO 04/11/25 19:00 Acetaminophen/ Hydrocodone Bitart 1 tab Q4HPRN PRN PO 04/11/25 19:00 04/12/25 01:56 1 TAB Ketorolac Tromethamine 15 mg TID IV 04/11/25 22:00 04/16/25 21:59 04/12/25 06:19 15 MG Acetaminophen 650 mg Q6HR PO 04/12/25 00:00 04/12/25 12:02 650 MG Fentanyl Citrate 25 mcg [id number] PRN IV 04/11/25 19:30 04/15/25 10:01 Laboratory Laboratory Tests 04/12/25 04:46 Test 04/12/25 04:46 Range/Units Serum Glucose 99 74-106 mg/dL Examination: GENERAL:Normal, ABDOMEN:Normal (Flat, soft, depressible incision sites with skin glue in place and without surrounding signs of infection. Appropriate tenderness) Labs and/or images reviewed: Labs reviewed by me (No leukocytosis 9 from 9, hemoglobin stable) Problem List/Assessment/Plan Assessment and Plan Ms. West is a 20-year-old female who presented with the acute appendicitis, she is currently postop day 1 from laparoscopic appendectomy. Appendix was inflamed, no gangrene, no perforation. Patient is cleared from surgical standpoint for discharge, no additional antibiotics needed. 1. Cleared for discharge per surgical standpoint. 2. No additional antibiotics required 3. No lifting over 10 lb for 6-8 weeks 4. May shower today, no bathing or swimming for 2 weeks 5. No driving if taking narcotics 6. Regular diet 7. Recommend for baseline pain control Tylenol and/or ibuprofen, follow telecommunications analyst's directions. 8. If required, [place] 5-325 mg 1 tab p.o. every 6 hours p.r.n. pain severe 9. Follow-up with Dr. Galindo at clinic in 2 weeks My Orders My Orders Orders - RYLAND MUNOZ MD Procedure Category Date Status Time Obtain Consent For: ORDERS 04/11/25 Transmitted 17:04 Obtain Consent For ADEN 04/11/25 In Process Anesthesia 17:04 Hydrocodone-Acet PHA 04/11/25 In Process 10/325mg Tab ([place] 19:00 Hydrocodone-Acet PHA 04/11/25 In Process 5/325mg Tab ([place] 19:00 Ketorolac Injection PHA 04/11/25 In Process (Toradol Injection) 22:00 Acetaminophen Tablet PHA 04/12/25 In Process (Tylenol Tablet) 00:00 Clear Liq Diet DIET 04/12/25 Transmitted Breakfast Plan discussed with Plan discussed with: Patient, Other (Sister) Visit Coding Surgery Date of Service if different f: Apr 12, 2025 Billing Provider: RYLAND MUNOZ MD Surgery Visit Codes: [id number] INP/OBS CARE(HIGH) RYLAND MUNOZ MD Apr 12, 2025 12:10
--- NOTE | 2025-04-12 14:17 | DVHPN2 ---
Reviewed: Care Plan, H&P, Labs, Medications, Previous Orders Changes from previous H/P or p: No Changes Objective Vitals Vital Signs Date Time Temp Pulse Resp B/P (MAP) Pulse Ox O2 Delivery O2 Flow Rate FiO2 04/12/25 09:00 98.8 93 18 110/62 (78) 98 98.8 04/12/25 07:50 Room Air* 0 21 Intake/Output Intake and Output 04/12/25 07:00 Intake Total 450 ml Balance 450 ml Intake Oral 150 ml IV Total 300 ml # Voids 4 # Bowel Movements 2 Medications Current Medications Medications Dose Ordered Sig/Kristine Route Start Time Stop Time Status Last Admin Dose Admin Levofloxacin/ Dextrose 100 ml @ 100 mls/hr DAILY IV 04/12/25 10:00 04/12/25 10:20 100 MLS/HR Metronidazole 100 ml @ 100 mls/hr Q8HR IV 04/11/25 14:00 04/12/25 13:50 100 MLS/HR Pantoprazole Sodium 40 mg DAILY IV 04/12/25 10:00 04/12/25 10:20 40 MG Ondansetron HCl 4 mg Q4HP PRN IV 04/11/25 13:15 04/12/25 00:49 4 MG Hydromorphone HCl 0.5 mg Q4HPRN PRN IV 04/11/25 13:15 Hold Acetaminophen/ Hydrocodone Bitart 1 tab Q4HP PRN PO 04/11/25 19:00 Acetaminophen/ Hydrocodone Bitart 1 tab Q4HPRN PRN PO 04/11/25 19:00 04/12/25 01:56 1 TAB Ketorolac Tromethamine 15 mg TID IV 04/11/25 22:00 04/16/25 21:59 04/12/25 13:50 15 MG Acetaminophen 650 mg Q6HR PO 04/12/25 00:00 04/12/25 12:02 650 MG Fentanyl Citrate 25 mcg [id number] PRN IV 04/11/25 19:30 04/15/25 10:01 Laboratory Results Laboratory Tests 04/12/25 04:46 Chemistry Test 04/12/25 04:46 Albumin 4.6 g/dL (3.2-4.8) Calcium Level 9.5 mg/dL (8.7-10.4) Total Protein 7.3 g/dL (5.7-8.2) LFT Test 04/12/25 04:46 Alanine Aminotransferase (ALT) 14 U/L (7-40) Alkaline Phosphatase 53 U/L (46-116) Aspartate Amino Transferase (AST) 28 U/L (13-40) Total Bilirubin 0.5 mg/dL (0.2-1.0) Urinalysis Test 04/11/25 08:40 Urine Color Colorless (Yellow) Urine Clarity Turbid (Clear) H Urine pH 5.5 (5.0-9.0) Urine Specific [place] 1.017 (1.001-1.035) Urine Protein Trace (Negative) H Urine Ketones Negative (Negative) Urine Blood 1+ /uL (Negative) H Urine Nitrite 2+ (Negative) H Urine Bilirubin Negative (Negative) Urine Urobilinogen Normal mg/dL (Negative) Urine Leukocyte Esterase 1+ /uL (Negative) Urine RBC 9 /hpf (0 - 4) Urine Microscopic WBC 53 /HPF (0-5) H Urine Squamous Epithelial Cells Few /hpf (<5) Urine Bacteria None seen /hpf (None Seen) Urine Mucus Few (None Seen) Urine Glucose Normal mg/dL (Normal) Urine Test Negative (Negative) Labs and/or images reviewed: Labs reviewed by me, Image(s) reviewed by me Assessment/Plan Assessment/Plan Acute abdominal pain Acute appendicitis status post laparoscopic appendectomy by continue Levaquin Flagyl pain medications Acute Dehydration: IV fluids ROLLY Rodríguez at bedside Plan discussed with: Patient Date of Service: Apr 12, 2025 Billing Provider: YAN CARRILLO MD Common Visit Codes: [id number] INP/OBS CARE(HIGH) YAN CARRILLO MD Apr 12, 2025 14:17
[2025-04-12] MEDS: SODIUM CHLORIDE 0.9% 1,000 ML IV SCH (14:50)
[2025-04-13 01:00] VITALS: BP 108/62; PULSE 83; RESP 18; TEMP 98; O2SAT 98
[2025-04-13 05:19] VITALS: BP 118/68; PULSE 65; RESP 17; TEMP 98.3; O2SAT 98
[2025-04-13 06:48] LABS: Hematocrit 32.8 % (36.0-46.0); Hemoglobin 11.4 g/dL (12.2-16.2); Mean Corpuscular Hemoglobin 29.3 pg (28.0-32.0); Mean Corpuscular Volume 84.3 fL (80.0-100.0); Nucleated Red Blood Cells % 0.0 %
[2025-04-13 07:07] LABS: Alanine Aminotransferase 12 U/L (7-40); Albumin 3.8 g/dL (3.2-4.8); Anion Gap 11 (5-15); BUN/Creatinine Ratio 12.8 (10.0-20.0); Blood Urea Nitrogen 10 mg/dL (9-23); Carbon Dioxide 21 mmol/L (20-31); Glucose 93 mg/dL (74-106); Sodium 143 mmol/L (136-145); Total Protein 6.1 g/dL (5.7-8.2)
[2025-04-13 07:08] LABS: Bilirubin, Total 0.3 mg/dL (0.2-1.0)
[2025-04-13 07:27] LABS: Alkaline Phosphatase 39 U/L (46-116); Calcium 8.2 mg/dL (8.7-10.4); Chloride 111 mmol/L (98-107); Potassium 3.4 mmol/L (3.5-5.1)
[2025-04-13 08:00] VITALS: RESP 16; O2SAT 99
[2025-04-13] MEDS ORDERED: HYDR-4902 PO (08:31)
--- NOTE | 2025-04-13 08:34 | DVHPN2 ---
Reviewed: Care Plan, H&P, Labs, Medications, Previous Orders Changes from previous H/P or p: No Changes Objective Vitals Vital Signs Date Time Temp Pulse Resp B/P (MAP) Pulse Ox O2 Delivery O2 Flow Rate FiO2 04/13/25 05:19 98.3 65 17 118/68 (85) 98 98.3 04/12/25 20:00 Room Air* 0 21 Intake/Output Intake and Output 04/13/25 07:00 Intake Total 1750 ml Balance 1750 ml Intake Oral 1450 ml IV Total 300 ml # Voids 7 Medications Current Medications Medications Dose Ordered Sig/Kristine Route Start Time Stop Time Status Last Admin Dose Admin Levofloxacin/ Dextrose 100 ml @ 100 mls/hr DAILY IV 04/12/25 10:00 04/12/25 10:20 100 MLS/HR Metronidazole 100 ml @ 100 mls/hr Q8HR IV 04/11/25 14:00 04/13/25 06:09 100 MLS/HR Pantoprazole Sodium 40 mg DAILY IV 04/12/25 10:00 04/12/25 10:20 40 MG Ondansetron HCl 4 mg Q4HP PRN IV 04/11/25 13:15 04/12/25 00:49 4 MG Hydromorphone HCl 0.5 mg Q4HPRN PRN IV 04/11/25 13:15 Hold Acetaminophen/ Hydrocodone Bitart 1 tab Q4HP PRN PO 04/11/25 19:00 Acetaminophen/ Hydrocodone Bitart 1 tab Q4HPRN PRN PO 04/11/25 19:00 04/13/25 00:01 1 TAB Ketorolac Tromethamine 15 mg TID IV 04/11/25 22:00 04/16/25 21:59 04/13/25 06:08 15 MG Acetaminophen 650 mg Q6HR PO 04/12/25 00:00 04/13/25 00:00 650 MG Fentanyl Citrate 25 mcg [id number] PRN IV 04/11/25 19:30 04/15/25 10:01 Sodium Chloride 1,000 ml @ 125 mls/hr Q8H IV 04/12/25 14:30 04/12/25 21:48 125 MLS/HR Laboratory Results Laboratory Tests 04/13/25 04:48 Chemistry Test 04/13/25 04:48 Albumin 3.8 g/dL (3.2-4.8) Calcium Level 8.2 mg/dL (8.7-10.4) L Total Protein 6.1 g/dL (5.7-8.2) LFT Test 04/13/25 04:48 Alanine Aminotransferase (ALT) 12 U/L (7-40) Alkaline Phosphatase 39 U/L (46-116) L Aspartate Amino Transferase (AST) 27 U/L (13-40) Total Bilirubin 0.3 mg/dL (0.2-1.0) Urinalysis Test 04/11/25 08:40 Urine Color Colorless (Yellow) Urine Clarity Turbid (Clear) H Urine pH 5.5 (5.0-9.0) Urine Specific [place] 1.017 (1.001-1.035) Urine Protein Trace (Negative) H Urine Ketones Negative (Negative) Urine Blood 1+ /uL (Negative) H Urine Nitrite 2+ (Negative) H Urine Bilirubin Negative (Negative) Urine Urobilinogen Normal mg/dL (Negative) Urine Leukocyte Esterase 1+ /uL (Negative) Urine RBC 9 /hpf (0 - 4) Urine Microscopic WBC 53 /HPF (0-5) H Urine Squamous Epithelial Cells Few /hpf (<5) Urine Bacteria None seen /hpf (None Seen) Urine Mucus Few (None Seen) Urine Glucose Normal mg/dL (Normal) Urine Test Negative (Negative) Labs and/or images reviewed: Labs reviewed by me, Image(s) reviewed by me Assessment/Plan Assessment/Plan Acute abdominal pain Acute appendicitis status post laparoscopic appendectomy by continue Levaquin Flagyl pain medications Acute Dehydration: IV fluids Covering ROLLY Rock at bedside Patient feels better and wants to go home Cleared for discharge by surgeon, advised no antibiotics needed Plan discussed with: Patient My Orders Orders - YAN CARRILLO MD Procedure Category Date Status Time Advance Diet As ADEN 04/12/25 In Process Tolerated 14:22 Sodium Chloride 0.9% PHA 04/12/25 In Process 14:30 Mechanical Soft Diet DIET 04/12/25 Transmitted Dinner Date of Service: Apr 13, 2025 Billing Provider: YAN CARRILLO MD Common Visit Codes: [id number] INP/OBS CARE(HIGH) YAN CARRILLO MD Apr 13, 2025 08:34
--- NOTE | 2025-04-13 08:37 | DVHDS2 ---
Discharge Summary Date of Admission Apr 11, 2025 at 13:10 Date of Discharge: Apr 13, 2025 Admitting Diagnosis Abdominal pain Wounds: Appendectomy Labs/Diagnostic Data: Laboratory Results Test 04/13/25 04:48 04/12/25 01:24 04/11/25 08:40 04/11/25 08:22 White Blood Count 6.4 10^3/uL (4.4-10.8) Red Blood Count 3.89 10^6/uL (4.0-5.20) Hemoglobin 11.4 g/dL (12.2-16.2) Hematocrit 32.8 % (36.0-46.0) Mean Corpuscular Volume 84.3 fL (80.0-100.0) Mean Corpuscular Hemoglobin 29.3 pg (28.0-32.0) Mean Corpuscular Hemoglobin Concent 34.7 g/dL (32.0-36.0) Red Cell Distribution Width 13.0 % (11.8-14.3) Platelet Count 236 10^3/uL (140-450) Mean Platelet Volume 9.2 fL (6.9-10.8) Neutrophils (%) (Auto) 68.6 % (37.0-80.0) Lymphocytes (%) (Auto) 23.3 % (10.0-50.0) Monocytes (%) (Auto) 7.8 % (0.0-12.0) Eosinophils (%) (Auto) 0.1 % (0.0-7.0) Basophils (%) (Auto) 0.2 % (0.0-2.0) Neutrophils # (Auto) 4.4 10 ^3/uL (1.6-8.6) Lymphocytes # (Auto) 1.5 10 ^3/uL (0.4-5.4) Monocytes # (Auto) 0.5 10 ^3/uL (0-1.3) Eosinophils # (Auto) 0 10 ^3/uL (0-0.8) Basophils # (Auto) 0 10 ^3/uL (0-0.2) Nucleated Red Blood Cells 0.0 % Sodium Level 143 mmol/L (136-145) Potassium Level 3.4 mmol/L (3.5-5.1) Chloride Level 111 mmol/L (98-107) Carbon Dioxide Level 21 mmol/L (20-31) Anion Gap 11 (5-15) Blood Urea Nitrogen 10 mg/dL (9-23) Creatinine 0.78 mg/dL (0.550-1.02) Glomerular Filtration Rate Calc 111 mL/min (>90) BUN/Creatinine Ratio 12.8 (10.0-20.0) Serum Glucose 93 mg/dL (74-106) Calcium Level 8.2 mg/dL (8.7-10.4) Total Bilirubin 0.3 mg/dL (0.2-1.0) Aspartate Amino Transferase (AST) 27 U/L (13-40) Alanine Aminotransferase (ALT) 12 U/L (7-40) Alkaline Phosphatase 39 U/L (46-116) Total Protein 6.1 g/dL (5.7-8.2) Albumin 3.8 g/dL (3.2-4.8) Troponin I High Sensitivity < 3 ng/L (</=34) Urine Color Colorless (Yellow) Urine Clarity Turbid (Clear) Urine pH 5.5 (5.0-9.0) Urine Specific [place] 1.017 (1.001-1.035) Urine Protein Trace (Negative) Urine Ketones Negative (Negative) Urine Blood 1+ /uL (Negative) Urine Nitrite 2+ (Negative) Urine Bilirubin Negative (Negative) Urine Urobilinogen Normal mg/dL (Negative) Urine Leukocyte Esterase 1+ /uL (Negative) Urine RBC 9 /hpf (0 - 4) Urine Microscopic WBC 53 /HPF (0-5) Urine Squamous Epithelial Cells Few /hpf (<5) Urine Bacteria None seen /hpf (None Seen) Urine Mucus Few (None Seen) Urine Glucose Normal mg/dL (Normal) Urine Test Negative (Negative) Prothrombin Time 10.8 sec (9.3-11.8) Prothrombin Time INR 1.02 (0.9-1.15) Activated Partial Thromboplast Time 30.2 SEC (24.5-34.5) Other Laboratory Tests 04/13/25 04:48 Brief Hx & Hospital Course: 20-year-old female admitted for acute appendicitis underwent laparoscopic appendectomy treated with the IV antibiotics pain medications IV fluids. Postop course uneventful At the time of discharge patient is comfortable abdomen is soft mildly tender passing gas cleared for discharge by Dr. Armando Levine advised no antibiotics needed she will follow up with Dr. Galindo in two weeks. Prescription for Nicholson [facility] Consults/Reason for consult Surgeon Dr. Galindo Operations or Procedures Laparoscopic appendectomy Condition at Discharge: Fair Final Diagnosis/Problems List Acute abdominal pain Acute appendicitis status post laparoscopic appendectomy by continue Levaquin Flagyl pain medications Acute Dehydration: IV fluids Discharge Disposition: Home Discharge Instruct/Medications Diet: Regular Activity: See Comment Activity comment: No lifting heavy weights for two weeks Follow Up/Referral: Follow up with surgeon Dr. Galindo in two weeks Medications: Nicholson [facility] Scheduled PRN Hydrocodone-Acetaminophen (Hydrocodone Bitartrate/AC 5-325 mg), 1 TAB PO QID PRN 39 (Time taken for discharge summary 39 minutes) Discharge Statement: "Patient was advised to return to the ER or call 911 if any headaches, dizziness, shortness of breath, chest pain, abdominal pain, bleeding, fevers, or worsening of medical condition. Patient was counseled about treatment plan, medications, possible side effects, patientverbalized understanding. All questions were answered to the best of my ability. This discharge took greater then 30 minutes in planning, reviewing documentation, counseling the patient, and discussing with other team members." ASSESSMENT ASSESSMENT Hospital Course Uneventful Assessment Acute abdominal pain Acute appendicitis status post laparoscopic appendectomy by continue Levaquin Flagyl pain medications Acute Dehydration: IV fluids Date of Service: Apr 13, 2025 Billing Provider: YAN CARRILLO MD Common Visit Codes: [id number] INP/OBS CARE(HIGH) YAN CARRILLO MD Apr 13, 2025 08:37
[2025-04-13 09:00] VITALS: BP 106/71; PULSE 78; RESP 16; TEMP 98; O2SAT 99
[2025-04-13] MEDS: HYDROcodone-ACET 10/325MG TAB PO PRN (09:18)
[2025-04-13 10:49] VITALS: TEMP 36.7
== END 2025-04-13 12:45 | disposition home or self-care (01) | DRG 398 ==
LOC: ER 07:58 → EEVIPCON 07:58 → OVERFLOW 13:10 → CENTRAL 16:46
PROVIDERS: ADMIT Family Medicine; ATTEND Family Medicine
PROC: 0DTJ4ZZ Resection of Appendix, Percutaneous Endoscopic Approach (ICD-10-PCS; principal; 2025-04-11 18:13)
DX: K35.80 Unspecified acute appendicitis (principal); N39.0 Urinary tract infection, site not specified; F32.A Depression, unspecified; F41.9 Anxiety disorder, unspecified; E86.0 Dehydration; Z80.9 Family history of malignant neoplasm, unspecified; Z88.0 Allergy status to penicillin; Z87.442 Personal history of urinary calculi
CPT/HCPCS: 36415; 71045; 74176; 80048; 80053; 81001; 81025; 84484; 85025; 85610; 85730; 86850; 86900; 86901; 96361; 96365; 96367; 96375; 99291; 99292; G0378; J0131; J0330; J0694; J1100; J1885; J1956; J2405; J2470; J2704; J3490